=== PATIENT | male | born 1950 | race African-American/Black ===

== ENCOUNTER 2023-10-04 10:30 | Emergency (ER) | payer OTHER ==
[2023-10-04] MEDS ORDERED: Ketorolac Tromethamine 30 MG/ML VIAL ONE (11:05)
[2023-10-04] MEDS ORDERED: Morphine 4 MG/ML VIAL ONE (11:05)
== END 2023-10-04 12:16 | disposition home or self-care (01) ==
LOC: CSHERS 10:30
DX: M54.32 Sciatica, left side (principal); I10 Essential (primary) hypertension; E11.9 Type 2 diabetes mellitus without complications; J44.9 Chronic obstructive pulmonary disease, unspecified
CPT/HCPCS: 72131; 96372; J1885; J2270